=== PATIENT | female | born 1935 | race Caucasian/White ===

== ENCOUNTER 2023-11-20 15:12 | Emergency (ER) | payer MEDICARE, OTHER ==
[~2023-11-20] VITALS: Ht 152.4 cm; Wt 64.9 kg
[2023-11-20] MEDS ORDERED: DIVA250T PO (15:47)
[2023-11-20] MEDS ORDERED: DONE10TA11 PO (15:47)
[2023-11-20] MEDS ORDERED: PIOG15TA8 PO (15:47)
[2023-11-20] MEDS ORDERED: OMEP20CA15 PO (15:47)
[2023-11-20] MEDS ORDERED: CALC-167 PO (15:47)
[2023-11-20] MEDS ORDERED: NA P133E RC (15:47)
[2023-11-20] MEDS ORDERED: AMLO10TA59 PO (15:47)
[2023-11-20] MEDS ORDERED: HYDR12.55 PO (15:47)
[2023-11-20] MEDS ORDERED: MECL-159 PO (15:47)
[2023-11-20] MEDS ORDERED: QUET50TA PO (15:47)
[2023-11-20] MEDS ORDERED: MAGN400O6 PO (15:47)
[2023-11-20] MEDS ORDERED: POTA-88 PO (15:47)
[2023-11-20] MEDS ORDERED: ONDA4TAB11 PO (15:47)
[2023-11-20] MEDS ORDERED: MEMA10TA PO (15:47)
[2023-11-20] MEDS ORDERED: ATOR10TA PO (15:47)
[2023-11-20] MEDS ORDERED: TRAM50TA2 PO (15:47)
[2023-11-20] MEDS ORDERED: MELO-105 PO (15:47)
[2023-11-20] MEDS ORDERED: BISA10SU61 RC (15:47)
[2023-11-20] MEDS ORDERED: MIRT7.5T10 PO (15:47)
[2023-11-20] MEDS ORDERED: ACET-73 PO (15:47)
[2023-11-20] MEDS ORDERED: LORA-259 PO (15:47)
[2023-11-20] MEDS ORDERED: CYCLOSPORINE 0.05% EACHEYE (15:47)
[2023-11-20] MEDS ORDERED: MULT-594 PO (15:47)
[2023-11-20] MEDS ORDERED: TRAZ-182 PO (15:47)
[2023-11-20] MEDS ORDERED: ASCO500C18 PO (15:47)
[2023-11-20] MEDS ORDERED: LEVO25TA2 PO (15:47)
[2023-11-20] MEDS ORDERED: ACET325T53 PO (15:47)
[2023-11-20 15:49] LABS: BASOPHILS % (AUTO) 0.4 % (0.0-2.0); EOSINOPHILS # (AUTO) 0.2 K/uL (0.0-0.7); EOSINOPHILS % (AUTO) 2.9 % (0.0-7.0); HEMATOCRIT 36.3 % (31.2-41.9); HEMOGLOBIN 11.7 g/dL (10.9-14.3); LYMPHOCYTES % (AUTO) 31.5 % (20.5-51.5); MEAN CORPUSCULAR HEMOGLOBIN 26.6 uug (24.7-32.8); MEAN CORPUSCULAR HGB CONC 32 g/dL (32.3-35.6); MEAN CORPUSCULAR VOLUME 82.7 fL (75.5-95.3); MONOCYTES # (AUTO) 0.7 K/uL (0.1-1.30); MONOCYTES % (AUTO) 11.7 % (0.0-11.0); NEUTROPHILS # (AUTO) 3.4 K/uL (1.8-8.9); NEUTROPHILS % (AUTO) 53.5 % (38.5-71.5); PLATELET COUNT (AUTO) 163 K/uL (179-408); RED BLOOD CELL COUNT(AUTO) 4.39 MIL/uL (3.63-4.92); RED CELL DISTRIBUTION WIDTH 15.8 % (12.3-17.7); WHITE BLOOD COUNT (AUTO) 6.4 K/uL (3.8-11.8)
[2023-11-20 15:53] LABS: DIFFERENTIAL COMMENT 1
[2023-11-20 15:56] LABS: CALCIUM 8.8 mg/dL (8.5-10.1); CARBON DIOXIDE 29 mmol/L (21-32); CHLORIDE 100 mmol/L (98-107); CREATININE 0.6 mg/dL (0.6-1.3); GLUCOSE 141 mg/dL (74-106); POTASSIUM 3.7 mmol/L (3.5-5.1); SODIUM SERUM 138 mmol/L (136-145); UREA NITROGEN, BLOOD 19 mg/dL (7-18)
[2023-11-20 15:58] LABS: AMMONIA 25 umol/L (11-32)
[2023-11-20 16:00] LABS: *BILIRUBIN,URIN NEGATIVE (NEGATIVE); *BLOOD, URINE NEGATIVE (NEGATIVE); *CLARITY,URINE CLEAR (CLEAR); *COLOR,URINE YELLOW (YELLOW); *KETONES,URINE NEGATIVE (NEGATIVE); *PROTEIN,URINE NEGATIVE (NEGATIVE); *UROBILINOGEN,URINE 0.2 E.U./dl (NORMAL); LEUKOCYTE ESTERASE ,URINE NEGATIVE (NEGATIVE); NITRITE, URINE NEGATIVE (NEGATIVE); UGLUCOSE NEGATIVE (NEGATIVE)
[2023-11-20 16:02] LABS: ACETAMINOPHEN < 2.0 ug/mL (10-30); ALANINE AMINOTRANSFERASE 18 U/L (14-59); ALBUMIN 3.5 g/dL (3.4-5.0); ALKALINE PHOSPHATASE 50 U/L (50-136); ASPARTATE AMINOTRANSFERASE 14 U/L (15-37); BILIRUBIN,DIRECT 0.1 mg/dL (0.0-0.2); BILIRUBIN,TOTAL 0.2 mg/dL (0.2-1.0); TOTAL PROTEIN, SERUM 7.3 g/dL (6.4-8.2)
[2023-11-20 16:06] LABS: ETHANOL < 3 MG/DL (0-10)
[2023-11-20 16:18] LABS: *AMPHETAMINE, URINE NEGATIVE (NEGATIVE); *BARBITURATE, URINE NEGATIVE (NEGATIVE); *BENZODIAZEPINE, URINE NEGATIVE (NEGATIVE); *CANNABINOID, URINE NEGATIVE (NEGATIVE); *COCCAINE, URINE NEGATIVE (NEGATIVE); *OPIATE, URINE NEGATIVE (NEGATIVE); *PHENCYCLIDINE SCREEN,URINE NEGATIVE (NEGATIVE); FENTANYL, URINE NEGATIVE (NEGATIVE)
[2023-11-20] MEDS ORDERED: LORAZEPAM 0.5 MG TABLET ONE (19:00)
[2023-11-20] MEDS: LORAZEPAM 0.5 MG TABLET PO ONE (19:02)
[2023-11-20 19:23] VITALS: BP 121/55; O2SAT 98
== END 2023-11-20 19:25 | disposition home or self-care (01) ==
LOC: ER 15:15
DX: F03.92 Unspecified dementia, unspecified severity, with psychotic disturbance (principal); M79.605 Pain in left leg; M79.604 Pain in right leg; R51.9 Headache, unspecified; Z79.1 Long term (current) use of non-steroidal anti-inflammatories (NSAID); Z79.899 Other long term (current) drug therapy; Z79.891 Long term (current) use of opiate analgesic; Z20.822 Contact with and (suspected) exposure to COVID-19
CPT/HCPCS: 36415; 70450; 71045; 83605; 85025; 85730; 87040; 93005; A4606; A4663; G0480

== ENCOUNTER 2024-04-26 14:44 | Inpatient (IN) | payer MEDICARE, OTHER ==
[~2024-04-26] VITALS: Ht 182.9 cm; Wt 68.0 kg
[~2024-04-26 14:44] MED LIST: ACET-73 PO; ACET325T53 PO; AMLO10TA59 PO; ASCO500C18 PO; ATOR10TA PO; BISA10SU61 RC; CALC-167 PO; CYCLOSPORINE 0.05% EACHEYE; DIVA250T PO; DONE10TA11 PO; HYDR12.55 PO; LEVO25TA2 PO; LORA-259 PO; MAGN400O6 PO; MECL-159 PO; MELO-105 PO; MEMA10TA PO; MIRT7.5T10 PO; MULT-594 PO; NA P133E RC; OMEP20CA15 PO; ONDA4TAB11 PO; PIOG15TA8 PO; POTA-88 PO; QUET50TA PO; TRAM50TA2 PO; TRAZ-182 PO
[2024-04-26 15:25] LABS: BASOPHILS % (AUTO) 0.3 % (0.0-2.0); EOSINOPHILS % (AUTO) 0.3 % (0.0-7.0); HEMATOCRIT 34.9 % (31.2-41.9); HEMOGLOBIN 11.7 g/dL (10.9-14.3); LYMPHOCYTES # (AUTO) 1.8 K/uL (0.8-4.8); LYMPHOCYTES % (AUTO) 14.1 % (20.5-51.5); MEAN CORPUSCULAR HEMOGLOBIN 28.2 uug (24.7-32.8); MEAN CORPUSCULAR HGB CONC 34 g/dL (32.3-35.6); MEAN CORPUSCULAR VOLUME 84.2 fL (75.5-95.3); MONOCYTES # (AUTO) 1.1 K/uL (0.1-1.30); MONOCYTES % (AUTO) 8.6 % (0.0-11.0); NEUTROPHILS # (AUTO) 9.8 K/uL (1.8-8.9); NEUTROPHILS % (AUTO) 76.7 % (38.5-71.5); PLATELET COUNT (AUTO) 192 K/uL (179-408); RED BLOOD CELL COUNT(AUTO) 4.15 MIL/uL (3.63-4.92); RED CELL DISTRIBUTION WIDTH 14.7 % (12.3-17.7); WHITE BLOOD COUNT (AUTO) 12.8 K/uL (3.8-11.8)
[2024-04-26 15:32] LABS: DIFFERENTIAL COMMENT 1
[2024-04-26 15:36] LABS: CALCIUM 8.4 mg/dL (8.5-10.1); CARBON DIOXIDE 28 mmol/L (21-32); CHLORIDE 104 mmol/L (98-107); CREATININE 0.8 mg/dL (0.6-1.3); GLUCOSE 145 mg/dL (74-106); POTASSIUM 4.3 mmol/L (3.5-5.1); SODIUM SERUM 140 mmol/L (136-145); UREA NITROGEN, BLOOD 21 mg/dL (7-18)
[2024-04-26 15:50] LABS: ALANINE AMINOTRANSFERASE 20 U/L (14-59); ALBUMIN 3.3 g/dL (3.4-5.0); ALKALINE PHOSPHATASE 48 U/L (50-136); ASPARTATE AMINOTRANSFERASE 16 U/L (15-37); BILIRUBIN,DIRECT 0.1 mg/dL (0.0-0.2); BILIRUBIN,TOTAL 0.3 mg/dL (0.2-1.0); NT-PRO BNP 718 pg/mL (0-125); TOTAL PROTEIN, SERUM 6.9 g/dL (6.4-8.2)
[2024-04-26] MEDS ORDERED: FLEET ENEMA 133 ML BOTTLE RC PRN (18:30)
[2024-04-26] MEDS ORDERED: ACETAMINOPHEN 325 MG TABLET PO PRN (18:30)
[2024-04-26] MEDS ORDERED: BISACODYL 10 MG SUPP.RECT RC PRN (18:30)
[2024-04-26] MEDS: TRAZODONE 50 MG TABLET PO SCH (20:29)
[2024-04-26] MEDS: MIRTAZAPINE 15 MG TABLET PO SCH (20:29)
[2024-04-26] MEDS ORDERED: DIVALPROEX 250 MG TABLET.DR PO ONE (20:29)
[2024-04-26] MEDS: DIVALPROEX ER 250 MG TAB.SR.24H PO SCH (20:30)
[2024-04-26 23:09] VITALS: TEMP 97.7
[2024-04-27] MEDS: TRAMADOL HCL 50 MG TABLET PO PRN (04:32)
[2024-04-27 06:36] LABS: BASOPHILS % (AUTO) 0.5 % (0.0-2.0); EOSINOPHILS # (AUTO) 0.1 K/uL (0.0-0.7); EOSINOPHILS % (AUTO) 1.2 % (0.0-7.0); HEMATOCRIT 32.8 % (31.2-41.9); HEMOGLOBIN 11.4 g/dL (10.9-14.3); LYMPHOCYTES # (AUTO) 1.9 K/uL (0.8-4.8); LYMPHOCYTES % (AUTO) 20.7 % (20.5-51.5); MEAN CORPUSCULAR HGB CONC 35 g/dL (32.3-35.6); MEAN CORPUSCULAR VOLUME 83.7 fL (75.5-95.3); MONOCYTES # (AUTO) 1.3 K/uL (0.1-1.30); MONOCYTES % (AUTO) 13.9 % (0.0-11.0); NEUTROPHILS % (AUTO) 63.7 % (38.5-71.5); PLATELET COUNT (AUTO) 179 K/uL (179-408); RED BLOOD CELL COUNT(AUTO) 3.92 MIL/uL (3.63-4.92); RED CELL DISTRIBUTION WIDTH 14.8 % (12.3-17.7); WHITE BLOOD COUNT (AUTO) 9.4 K/uL (3.8-11.8)
[2024-04-27] MEDS: LEVOTHYROXINE SODIUM 25 MCG TABLET PO SCH (06:36)
[2024-04-27] MEDS: PANTOPRAZOLE SODIUM 40 MG TABLET.DR PO SCH (06:37)
[2024-04-27 07:11] LABS: ALANINE AMINOTRANSFERASE 21 U/L (14-59); ALKALINE PHOSPHATASE 50 U/L (50-136); ASPARTATE AMINOTRANSFERASE 11 U/L (15-37); BILIRUBIN,TOTAL 0.6 mg/dL (0.2-1.0); CALCIUM 8.2 mg/dL (8.5-10.1); CARBON DIOXIDE 29 mmol/L (21-32); CHLORIDE 103 mmol/L (98-107); CHOLESTEROL 117 mg/dL (<200); CREATININE 0.6 mg/dL (0.6-1.3); GLUCOSE 118 mg/dL (74-106); HDL CHOLESTEROL 50 mg/dL (40-60); MAGNESIUM 1.6 mg/dL (1.8-2.4); PHOSPHOROUS 3.2 mg/dL (2.5-4.9); POTASSIUM 3.9 mmol/L (3.5-5.1); SODIUM SERUM 139 mmol/L (136-145); TOTAL PROTEIN, SERUM 7.2 g/dL (6.4-8.2); TRIGLYCERIDES 52 MG/DL (30-150); UREA NITROGEN, BLOOD 17 mg/dL (7-18)
[2024-04-27 07:21] LABS: IRON, SERUM 48 ug/dL (50-175)
[2024-04-27 07:22] LABS: DIFFERENTIAL COMMENT 1
[2024-04-27 07:49] LABS: THYROID STIMULATING HORMONE 2.592 mIU/mL (0.358-3.740)
[2024-04-27] MEDS ORDERED: DIVALPROEX ER 250 MG TAB.SR.24H PO SCH (09:00)
[2024-04-27] MEDS: DONEPEZIL 10 MG TABLET PO SCH (09:17)
[2024-04-27] MEDS: PIOGLITAZONE HCL 15 MG TABLET PO SCH (09:17)
[2024-04-27] MEDS: MEMANTINE HCL 10 MG TABLET PO SCH (09:17)
[2024-04-27] MEDS: AMLODIPINE 10 MG TABLET PO SCH (09:18)
[2024-04-27] MEDS: MAGNESIUM OXIDE 400 MG TABLET PO ONE (12:36)
[2024-04-27 16:05] VITALS: BP 120/63; TEMP 98.1; O2SAT 95
[2024-04-27] MEDS: DIVALPROEX 250 MG TABLET.DR PO SCH (16:49)
[2024-04-27] MEDS ORDERED: CHOL-35 PO (17:30)
[2024-04-27] MEDS ORDERED: DIVA250T4 PO (17:30)
[2024-04-27] MEDS ORDERED: ZINC1CAP3 PO (17:30)
[2024-04-27] MEDS: MAGNESIUM HYDROXIDE 30 ML LIQUID UDC PO PRN (18:25)
[2024-04-27] MEDS ORDERED: MIRTAZAPINE 15 MG TABLET PO SCH (21:00)
[2024-04-27] MEDS: LORAZEPAM 1 MG TABLET PO PRN (21:02)
[2024-04-27 21:42] VITALS: BP 135/71; TEMP 98.6; O2SAT 95
[2024-04-28] MEDS ORDERED: QUETIAPINE FUMARATE 25 MG TABLET PO PRN ×2 (00:15→13:00)
[2024-04-28] MEDS: QUETIAPINE FUMARATE 25 MG TABLET PO PRN (01:18)
[2024-04-28 06:56] VITALS: BP 133/65; TEMP 98.5; O2SAT 95
[2024-04-28 08:00] VITALS: BP 103/47; O2SAT 95
[2024-04-28 08:39] LABS: CALCIUM 8.4 mg/dL (8.5-10.1); CARBON DIOXIDE 27 mmol/L (21-32); CHLORIDE 101 mmol/L (98-107); CREATININE 0.6 mg/dL (0.6-1.3); GLUCOSE 132 mg/dL (74-106); POTASSIUM 3.9 mmol/L (3.5-5.1); SODIUM SERUM 138 mmol/L (136-145); UREA NITROGEN, BLOOD 16 mg/dL (7-18)
[2024-04-28] MEDS: CHOLECALCIFEROL 1,000 UNIT TABLET PO SCH (08:54)
[2024-04-28] MEDS: ZINC SULFATE 220 MG CAPSULE PO SCH (08:54)
[2024-04-28] MEDS: PIOGLITAZONE HCL 15 MG TABLET PO SCH (08:54)
[2024-04-28 16:00] VITALS: BP 146/77; TEMP 99.5; O2SAT 94
[2024-04-28 21:58] VITALS: BP 143/74; TEMP 98.9; O2SAT 96
[2024-04-29 05:43] VITALS: BP 151/79; TEMP 98.1; O2SAT 94
[2024-04-29 08:00] VITALS: BP 143/71; TEMP 98.3; O2SAT 96
[2024-04-29] MEDS ORDERED: ACET325T53 PO (15:45)
[2024-04-29] MEDS ORDERED: HYDR-4209 PO (15:45)
[2024-04-29] MEDS ORDERED: BISA10SU12 RC (15:45)
[2024-04-29] MEDS ORDERED: TRAZ-252 PO (15:45)
[2024-04-29] MEDS ORDERED: DIVA250T4 PO (15:45)
[2024-04-29] MEDS ORDERED: PROT30LI PO (15:45)
[2024-04-29 16:20] VITALS: BP 127/69; TEMP 98.6; O2SAT 94
== END 2024-04-29 19:30 | DRG 535 ==
LOC: ER 14:44 → MEDSURG3 21:37 → MEDSURG1 04-27 09:44
PROVIDERS: ADMIT Internal Medicine; ATTEND Internal Medicine
DX: S32.511A Fracture of superior rim of right pubis, initial encounter for closed fracture (principal); S32.491A Other specified fracture of right acetabulum, initial encounter for closed fracture; E44.1 Mild protein-calorie malnutrition; D68.59 Other primary thrombophilia; F03.92 Unspecified dementia, unspecified severity, with psychotic disturbance; F03.94 Unspecified dementia, unspecified severity, with anxiety; F03.93 Unspecified dementia, unspecified severity, with mood disturbance; G93.40 Encephalopathy, unspecified; S32.591A Other specified fracture of right pubis, initial encounter for closed fracture; W05.0XXA Fall from non-moving wheelchair, initial encounter; Y92.129 Unspecified place in nursing home as the place of occurrence of the external cause; M48.56XD Collapsed vertebra, not elsewhere classified, lumbar region, subsequent encounter for fracture with routine healing; Z53.8 Procedure and treatment not carried out for other reasons; E83.42 Hypomagnesemia; E78.5 Hyperlipidemia, unspecified; E88.09 Other disorders of plasma-protein metabolism, not elsewhere classified; E11.9 Type 2 diabetes mellitus without complications; E03.9 Hypothyroidism, unspecified; Z79.890 Hormone replacement therapy; D72.829 Elevated white blood cell count, unspecified; Z74.09 Other reduced mobility; I10 Essential (primary) hypertension; K21.9 Gastro-esophageal reflux disease without esophagitis; F32.9 Major depressive disorder, single episode, unspecified; R13.10 Dysphagia, unspecified; Z89.512 Acquired absence of left leg below knee; Z79.84 Long term (current) use of oral hypoglycemic drugs; M47.816 Spondylosis without myelopathy or radiculopathy, lumbar region; Z79.899 Other long term (current) drug therapy; Z86.16 Personal history of COVID-19; I44.0 Atrioventricular block, first degree
CPT/HCPCS: 36415; 71045; 72192; 73502; 83550; 83735; 84100; 84443; 84484; 85025; 85730; 86850; 86900; 86901; A4663; G0378; J3490

== ENCOUNTER 2024-06-07 17:54 | Inpatient (IN) | payer MEDICARE, OTHER ==
[~2024-06-07] VITALS: Ht 154.9 cm; Wt 68.0 kg
[~2024-06-07 17:54] MED LIST changes: -ACET-73 PO; -ASCO500C18 PO; -ATOR10TA PO; +BISA10SU12 RC; -BISA10SU61 RC; +CHOL-35 PO; -CYCLOSPORINE 0.05% EACHEYE; -DIVA250T PO; +DIVA250T4 PO; +HYDR-4209 PO; -MECL-159 PO; -MIRT7.5T10 PO; -POTA-88 PO; +PROT30LI PO; -TRAM50TA2 PO; -TRAZ-182 PO; +TRAZ-252 PO
[2024-06-07 18:38] LABS: BASOPHILS # (AUTO) 0.1 K/UL (0.0-0.2); BASOPHILS % (AUTO) 0.5 % (0.0-2.0); EOSINOPHILS # (AUTO) 0.1 K/uL (0.0-0.7); EOSINOPHILS % (AUTO) 0.3 % (0.0-7.0); HEMATOCRIT 33.8 % (31.2-41.9); HEMOGLOBIN 11.1 g/dL (10.9-14.3); LYMPHOCYTES # (AUTO) 1.4 K/uL (0.8-4.8); LYMPHOCYTES % (AUTO) 8.4 % (20.5-51.5); MEAN CORPUSCULAR HEMOGLOBIN 27.9 uug (24.7-32.8); MEAN CORPUSCULAR HGB CONC 33 g/dL (32.3-35.6); MEAN CORPUSCULAR VOLUME 84.8 fL (75.5-95.3); MONOCYTES # (AUTO) 2.3 K/uL (0.1-1.30); MONOCYTES % (AUTO) 13.7 % (0.0-11.0); NEUTROPHILS # (AUTO) 12.8 K/uL (1.8-8.9); NEUTROPHILS % (AUTO) 77.1 % (38.5-71.5); PLATELET COUNT (AUTO) 238 K/uL (179-408); RED BLOOD CELL COUNT(AUTO) 3.98 MIL/uL (3.63-4.92); RED CELL DISTRIBUTION WIDTH 16.1 % (12.3-17.7); WHITE BLOOD COUNT (AUTO) 16.6 K/uL (3.8-11.8)
[2024-06-07] MEDS: IV NORMAL SALINE 1000 ML BAG IV ONE ×2 (18:43→20:00)
[2024-06-07 18:46] LABS: DIFFERENTIAL COMMENT 1
[2024-06-07 18:58] LABS: ALANINE AMINOTRANSFERASE 6 U/L (14-59); ALBUMIN 1.9 g/dL (3.4-5.0); ALKALINE PHOSPHATASE 54 U/L (50-136); ASPARTATE AMINOTRANSFERASE 20 U/L (15-37); BILIRUBIN,DIRECT < 0.1 mg/dL (0.0-0.2); BILIRUBIN,TOTAL 0.4 mg/dL (0.2-1.0); CALCIUM 8.4 mg/dL (8.5-10.1); CARBON DIOXIDE 25 mmol/L (21-32); CHLORIDE 101 mmol/L (98-107); CREATININE 0.5 mg/dL (0.6-1.3); GLUCOSE 182 mg/dL (74-106); SODIUM SERUM 135 mmol/L (136-145); TOTAL PROTEIN, SERUM 7.6 g/dL (6.4-8.2); UREA NITROGEN, BLOOD 22 mg/dL (7-18)
[2024-06-07 19:04] LABS: THYROID STIMULATING HORMONE 4.244 mIU/mL (0.358-3.740)
[2024-06-07 19:36] LABS: MAGNESIUM 1.7 mg/dL (1.8-2.4)
[2024-06-07] MEDS: CEFTRIAXONE 1 G in IV DEXTROSE 5% 50 ML IV ONE (20:00)
[2024-06-07] MEDS: AZITHROMYCIN IV 500 MG in IV DEXTROSE 5% 250 ML IV ONE (20:00)
[2024-06-07] MEDS ORDERED: AZITHROMYCIN 500MG/ D5W 250ML IVPB **ER PYXIS ONLY IV ONE (21:28)
[2024-06-07] MEDS ORDERED: CEFTRIAXONE /D5W 50ML IVPB **ER PYXIS IV ONE (21:28)
[2024-06-07] MEDS ORDERED: CEFEPIME HCL 1 G in IV DEXTROSE 5% 50 ML IV SCH (21:45)
[2024-06-07] MEDS ORDERED: ONDANSETRON 4 MG/2 ML VIAL IV PRN (21:45)
[2024-06-07 22:30] VITALS: BP 150/92; TEMP 98.3; O2SAT 97
[2024-06-07] MEDS: VANCOMYCIN IV 1,250 MG in IV DEXTROSE 5% 250 ML IV ONE (22:30)
[2024-06-07] MEDS: ENOXAPARIN SODIUM 40 MG/0.4 ML DISP.SYRIN SQ SCH (22:45)
[2024-06-07] MEDS ORDERED: VANCOMYCIN HCL 500 MG VIAL ONE (23:06)
[2024-06-07] MEDS ORDERED: VANCOMYCIN 1000 MG VIAL ONE (23:06)
[2024-06-08] VITALS (8 sets, daily range): BP systolic 104–150; BP diastolic 61–90; TEMP 98–98.9; O2SAT 93–98
[2024-06-08] MEDS: DILTIAZEM HCL 25 MG IV IV ONE (04:40)
[2024-06-08] MEDS: PANTOPRAZOLE SODIUM 40 MG TABLET.DR PO SCH (06:31)
[2024-06-08] MEDS: ACETAMINOPHEN 325 MG TABLET PO PRN (06:32)
[2024-06-08 07:06] LABS: BASOPHILS % (AUTO) 0.2 % (0.0-2.0); HEMATOCRIT 32.4 % (31.2-41.9); LYMPHOCYTES # (AUTO) 1.9 K/uL (0.8-4.8); LYMPHOCYTES % (AUTO) 11.9 % (20.5-51.5); MEAN CORPUSCULAR HEMOGLOBIN 28.5 uug (24.7-32.8); MEAN CORPUSCULAR HGB CONC 34 g/dL (32.3-35.6); MEAN CORPUSCULAR VOLUME 83.6 fL (75.5-95.3); MONOCYTES # (AUTO) 2.4 K/uL (0.1-1.30); MONOCYTES % (AUTO) 14.5 % (0.0-11.0); NEUTROPHILS % (AUTO) 73.4 % (38.5-71.5); PLATELET COUNT (AUTO) 277 K/uL (179-408); RED BLOOD CELL COUNT(AUTO) 3.88 MIL/uL (3.63-4.92); RED CELL DISTRIBUTION WIDTH 15.9 % (12.3-17.7); WHITE BLOOD COUNT (AUTO) 16.3 K/uL (3.8-11.8)
[2024-06-08 07:24] LABS: DIFFERENTIAL COMMENT 1
[2024-06-08 07:29] LABS: ALANINE AMINOTRANSFERASE 9 U/L (14-59); ALBUMIN 1.9 g/dL (3.4-5.0); ALKALINE PHOSPHATASE 56 U/L (50-136); ASPARTATE AMINOTRANSFERASE < 5 U/L (15-37); BILIRUBIN,DIRECT 0.1 mg/dL (0.0-0.2); BILIRUBIN,TOTAL 0.4 mg/dL (0.2-1.0); CALCIUM 8.8 mg/dL (8.5-10.1); CARBON DIOXIDE 26 mmol/L (21-32); CHLORIDE 98 mmol/L (98-107); CREATININE 0.4 mg/dL (0.6-1.3); GLUCOSE 149 mg/dL (74-106); MAGNESIUM 1.6 mg/dL (1.8-2.4); PHOSPHOROUS 2.3 mg/dL (2.5-4.9); POTASSIUM 3.3 mmol/L (3.5-5.1); SODIUM SERUM 133 mmol/L (136-145); TOTAL PROTEIN, SERUM 7.7 g/dL (6.4-8.2); UREA NITROGEN, BLOOD 16 mg/dL (7-18)
[2024-06-08] MEDS ORDERED: ACET-2030 PO (07:44)
[2024-06-08] MEDS ORDERED: POLY17PO4 PO (07:49)
[2024-06-08] MEDS ORDERED: ONDA4TAB5 PO (07:51)
[2024-06-08] MEDS: CEFEPIME HCL 2 GM in IV DEXTROSE 5% 100 ML IV SCH (08:30)
[2024-06-08 08:32] LABS: *BILIRUBIN,URIN NEGATIVE (NEGATIVE); *BLOOD, URINE 1+ (NEGATIVE); *CLARITY,URINE CLEAR (CLEAR); *COLOR,URINE YELLOW (YELLOW); *KETONES,URINE 3+ (NEGATIVE); *PROTEIN,URINE 3+ (NEGATIVE); *UROBILINOGEN,URINE 0.2 E.U./dl (NORMAL); LEUKOCYTE ESTERASE ,URINE TRACE (NEGATIVE); NITRITE, URINE POSITIVE (NEGATIVE); UGLUCOSE NEGATIVE (NEGATIVE)
[2024-06-08 08:35] LABS: BACTERIA,URINE MANY /HPF (NONE SEEN); SQUAMOUS EPITHELIAL CELL,UR MODERATE /HPF (NONE SEEN); URINE AMORPHOUS URATE FEW /HPF; WBC,URINE 80-100 /HPF (0-3)
[2024-06-08] MEDS: MAGNESIUM OXIDE 400 MG TABLET PO ONE (11:22)
[2024-06-08] MEDS: POTASSIUM CHLORIDE 20 MEQ TAB.PRT.SR PO ONE (11:22)
[2024-06-08 12:47] LABS: THYROID STIMULATING HORMONE 4.605 mIU/mL (0.358-3.740)
[2024-06-08] MEDS ORDERED: PIPERACILLIN SODIUM/TAZOBACTAM 3.375 G in IV DEXTROSE 5% 50 ML IV SCH (14:00)
[2024-06-08] MEDS: PIPERACILLIN SODIUM/TAZOBACTAM 3.375 G in IV DEXTROSE 5% 100 ML IV SCH (14:50)
[2024-06-08] MEDS: NEUTRA PHOS PACKET PO ONE (15:48)
[2024-06-08] MEDS: ENSURE ENLIVE (VAN) 240 ML LIQUID PO SCH (18:12)
[2024-06-08] MEDS ORDERED: VANCOMYCIN IV 1,000 MG in IV DEXTROSE 5% 250 ML IV SCH (22:00)
[2024-06-09 00:15] VITALS: BP 151/60; TEMP 98; O2SAT 95
[2024-06-09 07:05] LABS: BASOPHILS % (AUTO) 0.3 % (0.0-2.0); EOSINOPHILS % (AUTO) 0.2 % (0.0-7.0); HEMATOCRIT 33.3 % (31.2-41.9); HEMOGLOBIN 11.1 g/dL (10.9-14.3); LYMPHOCYTES # (AUTO) 2.4 K/uL (0.8-4.8); LYMPHOCYTES % (AUTO) 17.8 % (20.5-51.5); MEAN CORPUSCULAR HEMOGLOBIN 27.7 uug (24.7-32.8); MEAN CORPUSCULAR HGB CONC 33 g/dL (32.3-35.6); MONOCYTES # (AUTO) 2.3 K/uL (0.1-1.30); MONOCYTES % (AUTO) 17.6 % (0.0-11.0); NEUTROPHILS # (AUTO) 8.5 K/uL (1.8-8.9); NEUTROPHILS % (AUTO) 64.1 % (38.5-71.5); PLATELET COUNT (AUTO) 305 K/uL (179-408); RED BLOOD CELL COUNT(AUTO) 4.01 MIL/uL (3.63-4.92); RED CELL DISTRIBUTION WIDTH 16.1 % (12.3-17.7); WHITE BLOOD COUNT (AUTO) 13.3 K/uL (3.8-11.8)
[2024-06-09 07:19] LABS: DIFFERENTIAL COMMENT 1
[2024-06-09 07:34] LABS: CALCIUM 8.9 mg/dL (8.5-10.1); CARBON DIOXIDE 25 mmol/L (21-32); CHLORIDE 99 mmol/L (98-107); CREATININE 0.5 mg/dL (0.6-1.3); GLUCOSE 169 mg/dL (74-106); MAGNESIUM 1.7 mg/dL (1.8-2.4); PHOSPHOROUS 2.7 mg/dL (2.5-4.9); POTASSIUM 3.6 mmol/L (3.5-5.1); SODIUM SERUM 133 mmol/L (136-145); UREA NITROGEN, BLOOD 15 mg/dL (7-18)
[2024-06-09 07:35] VITALS: BP 128/64; TEMP 98.3; O2SAT 95
[2024-06-09] MEDS: ARGININE/GLUTAMINE/CALCIUM BMB 1 EACH POWD.PACK PO SCH (08:23)
[2024-06-09 11:25] LABS: LYMPHOCYTES % (MANUAL) 18 % (20-40); MONOCYTES % (MANUAL) 18 % (2-10); NEUTROPHILS % (MANUAL) 64 % (42-75)
[2024-06-09 11:26] LABS: PLATELET ESTIMATE ADEQUATE
[2024-06-09 11:44] VITALS: BP 114/66; TEMP 100.6; O2SAT 96
[2024-06-09] MEDS: MAGNESIUM OXIDE 400 MG TABLET PO ONE (12:37)
[2024-06-09 16:05] VITALS: BP 145/78; TEMP 98.7; O2SAT 97
[2024-06-09] MEDS: OLANZAPINE 2.5 MG TABLET PO PRN (16:18)
[2024-06-09] MEDS: OLANZAPINE 10 MG VIAL IM PRN (17:39)
[2024-06-09 20:00] VITALS: BP 128/64; TEMP 98.3; O2SAT 95
[2024-06-10 05:07] VITALS: BP 122/104; TEMP 100.3; O2SAT 95
[2024-06-10 07:42] VITALS: BP 99/55; TEMP 98; O2SAT 96
[2024-06-10 07:58] LABS: CALCIUM 8.6 mg/dL (8.5-10.1); CARBON DIOXIDE 28 mmol/L (21-32); CHLORIDE 102 mmol/L (98-107); CREATININE 0.5 mg/dL (0.6-1.3); GLUCOSE 160 mg/dL (74-106); MAGNESIUM 1.7 mg/dL (1.8-2.4); POTASSIUM 3.4 mmol/L (3.5-5.1); SODIUM SERUM 139 mmol/L (136-145); UREA NITROGEN, BLOOD 16 mg/dL (7-18)
[2024-06-10] MEDS ORDERED: FLEET ENEMA 133 ML BOTTLE RC PRN (10:30)
[2024-06-10] MEDS ORDERED: MIRALAX 17 GM POWD.PACK PO PRN (10:30)
[2024-06-10] MEDS ORDERED: ACETAMINOPHEN 325 MG TABLET-SA PATIENTS-PAIN ONLY PO PRN (10:30)
[2024-06-10] MEDS ORDERED: BISACODYL 10 MG SUPP.RECT RC PRN (10:30)
[2024-06-10] MEDS ORDERED: MAGNESIUM HYDROXIDE 30 ML LIQUID UDC PO PRN (10:30)
[2024-06-10] MEDS ORDERED: ACETAMINOPHEN 325 MG TABLET PO PRN (11:00)
[2024-06-10] MEDS: POTASSIUM CHLORIDE 20 MEQ TAB.PRT.SR PO ONE (11:00)
[2024-06-10] MEDS: MAGNESIUM OXIDE 400 MG TABLET PO ONE (11:07)
[2024-06-10 11:11] VITALS: BP 115/57; TEMP 98.5; O2SAT 97
[2024-06-10] MEDS: DIVALPROEX 250 MG TABLET.DR PO SCH (13:59)
[2024-06-10 16:20] VITALS: BP 95/47; TEMP 99.5; O2SAT 97
[2024-06-10] MEDS: QUETIAPINE FUMARATE 25 MG TABLET PO SCH (17:41)
[2024-06-10 18:00] VITALS: BP 121/56; TEMP 99; O2SAT 97
[2024-06-10] MEDS ORDERED: Medication Not On Formulary EA (Quetiapine Fumarate (Seroquel) 50 MG) PO SCH (18:00)
[2024-06-10 19:15] VITALS: BP 122/60; TEMP 98.7; O2SAT 95
[2024-06-10] MEDS: TRAZODONE 50 MG TABLET PO SCH (20:28)
[2024-06-10] MEDS: DONEPEZIL 10 MG TABLET PO SCH (20:28)
[2024-06-10] MEDS: METOPROLOL TARTRATE 25 MG TABLET PO SCH (20:28)
[2024-06-10] MEDS ORDERED: IV 0.9% SODIUM CHLORID+ 20 KCL 1,000 ML ONE (21:05)
[2024-06-10] MEDS: POTASSIUM CHLORIDE 20 MEQ in IV NS 1000 ML 1,000 ML IV PRN (21:11)
[2024-06-11 00:26] VITALS: BP 110/49; TEMP 99.6; O2SAT 98
[2024-06-11 05:52] VITALS: BP 118/59; TEMP 99.2; O2SAT 97
[2024-06-11 06:08] LABS: BASOPHILS # (AUTO) 0.1 K/UL (0.0-0.2); BASOPHILS % (AUTO) 0.6 % (0.0-2.0); EOSINOPHILS # (AUTO) 0.1 K/uL (0.0-0.7); EOSINOPHILS % (AUTO) 1.2 % (0.0-7.0); HEMATOCRIT 26.7 % (31.2-41.9); HEMOGLOBIN 9.3 g/dL (10.9-14.3); LYMPHOCYTES # (AUTO) 2.2 K/uL (0.8-4.8); LYMPHOCYTES % (AUTO) 20.3 % (20.5-51.5); MEAN CORPUSCULAR HEMOGLOBIN 28.7 uug (24.7-32.8); MEAN CORPUSCULAR HGB CONC 35 g/dL (32.3-35.6); MEAN CORPUSCULAR VOLUME 82.8 fL (75.5-95.3); MONOCYTES # (AUTO) 1.6 K/uL (0.1-1.30); MONOCYTES % (AUTO) 14.6 % (0.0-11.0); NEUTROPHILS # (AUTO) 6.8 K/uL (1.8-8.9); NEUTROPHILS % (AUTO) 63.3 % (38.5-71.5); PLATELET COUNT (AUTO) 289 K/uL (179-408); RED BLOOD CELL COUNT(AUTO) 3.22 MIL/uL (3.63-4.92); WHITE BLOOD COUNT (AUTO) 10.7 K/uL (3.8-11.8)
[2024-06-11] MEDS: LEVOTHYROXINE SODIUM 25 MCG TABLET PO SCH (06:12)
[2024-06-11 06:20] LABS: DIFFERENTIAL COMMENT 1
[2024-06-11 06:28] LABS: ALANINE AMINOTRANSFERASE 32 U/L (14-59); ALBUMIN 1.6 g/dL (3.4-5.0); ALKALINE PHOSPHATASE 58 U/L (50-136); ASPARTATE AMINOTRANSFERASE 27 U/L (15-37); BILIRUBIN,TOTAL 0.4 mg/dL (0.2-1.0); CARBON DIOXIDE 28 mmol/L (21-32); CHLORIDE 104 mmol/L (98-107); CREATININE 0.5 mg/dL (0.6-1.3); GLUCOSE 146 mg/dL (74-106); MAGNESIUM 1.8 mg/dL (1.8-2.4); PHOSPHOROUS 2.9 mg/dL (2.5-4.9); POTASSIUM 3.8 mmol/L (3.5-5.1); SODIUM SERUM 139 mmol/L (136-145); TOTAL PROTEIN, SERUM 6.6 g/dL (6.4-8.2); UREA NITROGEN, BLOOD 16 mg/dL (7-18)
[2024-06-11 07:31] VITALS: BP 106/51; TEMP 98.8; O2SAT 97
[2024-06-11] MEDS: MEMANTINE HCL 10 MG TABLET PO SCH (08:36)
[2024-06-11] MEDS: MULTIVITAMINS,THERAPEUTIC TABLET PO SCH (08:36)
[2024-06-11] MEDS: REMEDY ESSENTIAL ZINC PASTE 113 GM TP PRN (08:38)
[2024-06-11] MEDS ORDERED: Medication Not On Formulary EA (Multivitamins (Multivitamin) 1 TAB) PO SCH (09:00)
[2024-06-11 11:33] VITALS: BP 109/45; TEMP 98.5; O2SAT 98
[2024-06-11] MEDS: PROTEIN SUPPLEMENT (PROSTAT) 30 ML LIQUID PO SCH (12:15)
[2024-06-11 15:59] VITALS: BP 101/41; TEMP 99.9; O2SAT 97
[2024-06-11 19:51] VITALS: BP 120/73; TEMP 97.2; O2SAT 97
[2024-06-12 04:22] VITALS: BP 112/63; TEMP 98.6; O2SAT 94
[2024-06-12] MEDS: PIOGLITAZONE HCL 15 MG TABLET PO SCH (09:37)
[2024-06-12 11:06] VITALS: BP 115/74; TEMP 98.5; O2SAT 94
[2024-06-12 15:18] VITALS: BP 110/70; TEMP 97.6; O2SAT 96
[2024-06-12 15:42] LABS: BASOPHILS # (AUTO) 0.1 K/UL (0.0-0.2); BASOPHILS % (AUTO) 0.7 % (0.0-2.0); EOSINOPHILS # (AUTO) 0.1 K/uL (0.0-0.7); EOSINOPHILS % (AUTO) 0.9 % (0.0-7.0); HEMOGLOBIN 8.3 g/dL (10.9-14.3); LYMPHOCYTES # (AUTO) 1.8 K/uL (0.8-4.8); LYMPHOCYTES % (AUTO) 16.5 % (20.5-51.5); MEAN CORPUSCULAR HEMOGLOBIN 27.7 uug (24.7-32.8); MEAN CORPUSCULAR HGB CONC 33 g/dL (32.3-35.6); MEAN CORPUSCULAR VOLUME 83.5 fL (75.5-95.3); MONOCYTES # (AUTO) 1.7 K/uL (0.1-1.30); NEUTROPHILS # (AUTO) 7.4 K/uL (1.8-8.9); NEUTROPHILS % (AUTO) 66.9 % (38.5-71.5); PLATELET COUNT (AUTO) 321 K/uL (179-408); RED CELL DISTRIBUTION WIDTH 16.4 % (12.3-17.7); WHITE BLOOD COUNT (AUTO) 11.1 K/uL (3.8-11.8)
[2024-06-12 15:49] LABS: DIFFERENTIAL COMMENT 1
[2024-06-12 15:50] LABS: EOSINOPHILS % (MANUAL) 1 % (0-8); LYMPHOCYTES % (MANUAL) 17 % (20-40); MONOCYTES % (MANUAL) 15 % (2-10); NEUTROPHILS % (MANUAL) 67 % (42-75); PLATELET ESTIMATE ADEQUATE
[2024-06-12 19:30] VITALS: BP 117/79; O2SAT 95
[2024-06-13] MEDS: LORAZEPAM 1 MG TABLET PO PRN (05:38)
[2024-06-13 06:30] VITALS: BP 124/65; TEMP 98.6; O2SAT 97
[2024-06-13 07:03] LABS: BASOPHILS % (AUTO) 0.4 % (0.0-2.0); EOSINOPHILS # (AUTO) 0.2 K/uL (0.0-0.7); EOSINOPHILS % (AUTO) 1.7 % (0.0-7.0); HEMATOCRIT 25.8 % (31.2-41.9); HEMOGLOBIN 8.7 g/dL (10.9-14.3); LYMPHOCYTES # (AUTO) 1.7 K/uL (0.8-4.8); MEAN CORPUSCULAR HEMOGLOBIN 28.3 uug (24.7-32.8); MEAN CORPUSCULAR HGB CONC 34 g/dL (32.3-35.6); MEAN CORPUSCULAR VOLUME 83.3 fL (75.5-95.3); MONOCYTES # (AUTO) 1.5 K/uL (0.1-1.30); MONOCYTES % (AUTO) 16.4 % (0.0-11.0); NEUTROPHILS # (AUTO) 5.9 K/uL (1.8-8.9); NEUTROPHILS % (AUTO) 63.5 % (38.5-71.5); PLATELET COUNT (AUTO) 327 K/uL (179-408); RED BLOOD CELL COUNT(AUTO) 3.09 MIL/uL (3.63-4.92); RED CELL DISTRIBUTION WIDTH 16.1 % (12.3-17.7); WHITE BLOOD COUNT (AUTO) 9.3 K/uL (3.8-11.8)
[2024-06-13 07:16] LABS: ALANINE AMINOTRANSFERASE 23 U/L (14-59); ALBUMIN 1.6 g/dL (3.4-5.0); ALKALINE PHOSPHATASE 53 U/L (50-136); ASPARTATE AMINOTRANSFERASE 17 U/L (15-37); BILIRUBIN,TOTAL 0.3 mg/dL (0.2-1.0); CALCIUM 8.5 mg/dL (8.5-10.1); CARBON DIOXIDE 28 mmol/L (21-32); CHLORIDE 103 mmol/L (98-107); CREATININE 0.5 mg/dL (0.6-1.3); GLUCOSE 139 mg/dL (74-106); IRON, SERUM 15 ug/dL (50-175); MAGNESIUM 1.8 mg/dL (1.8-2.4); PHOSPHOROUS 3.5 mg/dL (2.5-4.9); POTASSIUM 3.4 mmol/L (3.5-5.1); SODIUM SERUM 133 mmol/L (136-145); TOTAL PROTEIN, SERUM 6.5 g/dL (6.4-8.2); UREA NITROGEN, BLOOD 12 mg/dL (7-18)
[2024-06-13 07:45] LABS: DIFFERENTIAL COMMENT 1
[2024-06-13 11:19] LABS: EOSINOPHILS % (MANUAL) 2 % (0-8); LYMPHOCYTES % (MANUAL) 18 % (20-40); MONOCYTES % (MANUAL) 16 % (2-10); NEUTROPHILS % (MANUAL) 64 % (42-75); PLATELET ESTIMATE ADEQUATE
[2024-06-13 11:33] VITALS: BP 112/60; TEMP 97.8; O2SAT 96
[2024-06-13] MEDS ORDERED: POTASSIUM CHLORIDE 20 MEQ TAB.PRT.SR PO ONE (14:00)
== END 2024-06-13 13:05 | DRG 871 ==
LOC: ER 18:09 → TELE3 21:10 → MEDSURG3 06-11 21:47
PROVIDERS: ADMIT Nurse Practitioner Family; ATTEND Internal Medicine
PROC: 05HA33Z Insertion of Infusion Device into Left Brachial Vein, Percutaneous Approach (ICD-10-PCS; principal; 2024-06-12)
DX: A41.9 Sepsis, unspecified organism (principal); G92.8 Other toxic encephalopathy; N39.0 Urinary tract infection, site not specified; F03.92 Unspecified dementia, unspecified severity, with psychotic disturbance; E44.0 Moderate protein-calorie malnutrition; D68.59 Other primary thrombophilia; F03.94 Unspecified dementia, unspecified severity, with anxiety; F03.93 Unspecified dementia, unspecified severity, with mood disturbance; R62.7 Adult failure to thrive; Z68.28 Body mass index [BMI] 28.0-28.9, adult; E66.9 Obesity, unspecified; Z71.3 Dietary counseling and surveillance; Z74.09 Other reduced mobility; E78.5 Hyperlipidemia, unspecified; I10 Essential (primary) hypertension; I48.0 Paroxysmal atrial fibrillation; E87.6 Hypokalemia; E83.42 Hypomagnesemia; E11.65 Type 2 diabetes mellitus with hyperglycemia; M48.56XD Collapsed vertebra, not elsewhere classified, lumbar region, subsequent encounter for fracture with routine healing; Z79.890 Hormone replacement therapy; E03.9 Hypothyroidism, unspecified; F32.A Depression, unspecified; Z79.84 Long term (current) use of oral hypoglycemic drugs; Z89.512 Acquired absence of left leg below knee; R13.10 Dysphagia, unspecified; K21.9 Gastro-esophageal reflux disease without esophagitis; R26.2 Difficulty in walking, not elsewhere classified; S32.511D Fracture of superior rim of right pubis, subsequent encounter for fracture with routine healing; W19.XXXD Unspecified fall, subsequent encounter
CPT/HCPCS: 36415; 71045; 83550; 83605; 83735; 84100; 84443; 84484; 85025; 85730; 87040; 87086; 93307; A4606; A4663; A6213; G0378; J0456; J0692; J0696; J1650; J2358; J2543; J3370; J3480; J3490; J7040; J7050

== ENCOUNTER 2024-11-15 12:56 | Inpatient (IN) | payer MEDICARE, OTHER ==
[~2024-11-15] VITALS: Ht 157.5 cm; Wt 63.5 kg
[~2024-11-15 12:56] MED LIST changes: +ACET-2030 PO; -ONDA4TAB11 PO; +ONDA4TAB5 PO; +POLY17PO4 PO; -PROT30LI PO
[2024-11-15] MEDS ORDERED: MIRT-121 PO (13:16)
[2024-11-15] MEDS ORDERED: PANT40TA49 PO (13:16)
[2024-11-15] MEDS ORDERED: METO25TA6 PO (13:16)
[2024-11-15] MEDS ORDERED: CEFTRIAXONE /D5W 50ML IVPB **ER PYXIS IV ONE (13:33)
[2024-11-15] MEDS ORDERED: diphenhydrAMINE 50 MG/1 ML VIAL ONE (13:33)
[2024-11-15] MEDS: diphenhydrAMINE 50 MG/1 ML VIAL IV ONE (13:41)
[2024-11-15] MEDS: IV NORMAL SALINE 1000 ML BAG IV ONE (13:41)
[2024-11-15] MEDS: CEFTRIAXONE 1 G in IV DEXTROSE 5% 50 ML IV ONE (13:41)
[2024-11-15 13:42] LABS: PLATELET COUNT (AUTO) 195 K/uL (179-408); RED BLOOD CELL COUNT(AUTO) 3.61 MIL/uL (3.63-4.92); RED CELL DISTRIBUTION WIDTH 19.7 % (12.3-17.7); WHITE BLOOD COUNT (AUTO) 5.3 K/uL (3.8-11.8)
[2024-11-15 13:49] LABS: CREATININE 0.3 mg/dL (0.6-1.3); SODIUM SERUM 142 mmol/L (136-145); UREA NITROGEN, BLOOD 12 mg/dL (7-18)
[2024-11-15 14:01] LABS: ASPARTATE AMINOTRANSFERASE 11 U/L (15-37); TOTAL PROTEIN, SERUM 6.5 g/dL (6.4-8.2)
[2024-11-15 14:45] LABS: *BILIRUBIN,URIN NEGATIVE (NEGATIVE); *BLOOD, URINE 2+ (NEGATIVE); *CLARITY,URINE CLOUDY (CLEAR); *COLOR,URINE YELLOW (YELLOW); *KETONES,URINE NEGATIVE (NEGATIVE); *PROTEIN,URINE 1+ (NEGATIVE); *UROBILINOGEN,URINE 1.0 E.U./dl (NORMAL); LEUKOCYTE ESTERASE ,URINE 3+ (NEGATIVE); NITRITE, URINE POSITIVE (NEGATIVE); UGLUCOSE NEGATIVE (NEGATIVE)
[2024-11-15 14:53] LABS: SQUAMOUS EPITHELIAL CELL,UR MODERATE /HPF (NONE SEEN)
[2024-11-15 15:15] VITALS: BP 137/66
[2024-11-15 16:41] VITALS: BP 121/63; TEMP 98
[2024-11-15] MEDS ORDERED: BISACODYL 10 MG SUPP.RECT RC PRN (17:30)
[2024-11-15] MEDS ORDERED: MIRALAX 17 GM POWD.PACK PO PRN (17:30)
[2024-11-15] MEDS ORDERED: ACETAMINOPHEN 325 MG TABLET-SA PATIENTS-PAIN ONLY PO PRN (17:30)
[2024-11-15] MEDS ORDERED: FLEET ENEMA 133 ML BOTTLE RC PRN (17:30)
[2024-11-15] MEDS ORDERED: MORPHINE SULFATE 2 MG/1 ML DISP.SYRIN IV PRN (17:45)
[2024-11-15] MEDS ORDERED: Medication Not On Formulary EA (Quetiapine Fumarate (Seroquel) 50 MG) PO SCH (18:00)
[2024-11-15 19:20] VITALS: BP 133/61; TEMP 99.1; O2SAT 99
[2024-11-15] MEDS ORDERED: ACETAMINOPHEN 325 MG TABLET PO PRN (19:30)
[2024-11-15] MEDS: DOCUSATE SODIUM 100 MG CAPSULE PO SCH (20:20)
[2024-11-15] MEDS: ENOXAPARIN SODIUM 40 MG/0.4 ML DISP.SYRIN SQ SCH (20:20)
[2024-11-15] MEDS: TRAZODONE 50 MG TABLET PO SCH (20:21)
[2024-11-15] MEDS: MIRTAZAPINE 15 MG TABLET PO SCH (20:21)
[2024-11-15] MEDS: LORAZEPAM 1 MG TABLET PO PRN (20:41)
[2024-11-15] MEDS ORDERED: DOCUSATE SODIUM 250 MG CAPSULE PO SCH (21:00)
[2024-11-15] MEDS: DIVALPROEX 250 MG TABLET.DR PO SCH (21:42)
[2024-11-16 00:30] VITALS: BP 148/52; TEMP 98.4; O2SAT 96
[2024-11-16 04:33] VITALS: BP 116/44; TEMP 98.2; O2SAT 97
[2024-11-16] MEDS ORDERED: PANTOPRAZOLE SODIUM 40 MG TABLET.DR PO SCH ×2 (06:00→07:00)
[2024-11-16] MEDS: PANTOPRAZOLE SODIUM 40 MG TABLET.DR PO SCH (06:07)
[2024-11-16] MEDS: LEVOTHYROXINE SODIUM 25 MCG TABLET PO SCH (06:07)
[2024-11-16 06:50] LABS: PLATELET COUNT (AUTO) 160 K/uL (179-408); RED BLOOD CELL COUNT(AUTO) 3.35 MIL/uL (3.63-4.92); RED CELL DISTRIBUTION WIDTH 18.9 % (12.3-17.7); WHITE BLOOD COUNT (AUTO) 4.8 K/uL (3.8-11.8)
[2024-11-16 07:11] LABS: ASPARTATE AMINOTRANSFERASE 6 U/L (15-37); CREATININE 0.3 mg/dL (0.6-1.3); SODIUM SERUM 143 mmol/L (136-145); TOTAL PROTEIN, SERUM 6.1 g/dL (6.4-8.2); UREA NITROGEN, BLOOD 7 mg/dL (7-18)
[2024-11-16 07:12] LABS: IRON, SERUM 39 ug/dL (50-175)
[2024-11-16 07:13] VITALS: BP 107/46; TEMP 98.5; O2SAT 97
[2024-11-16] MEDS ORDERED: Medication Not On Formulary EA (Multivitamins (Multivitamin) 1 TAB) PO SCH (09:00)
[2024-11-16] MEDS ORDERED: CEFTRIAXONE 1 G in IV DEXTROSE 5% 50 ML IV SCH (09:00)
[2024-11-16] MEDS: MEMANTINE HCL 10 MG TABLET PO SCH (09:01)
[2024-11-16] MEDS: MULTIVITAMINS,THERAPEUTIC TABLET PO SCH (09:02)
[2024-11-16] MEDS: MAGNESIUM OXIDE 400 MG TABLET PO ONE (10:12)
[2024-11-16] MEDS: POTASSIUM CHLORIDE 20 MEQ TAB.PRT.SR PO ONE (10:12)
[2024-11-16 10:48] VITALS: BP 105/49; TEMP 98; O2SAT 98
[2024-11-16] MEDS: CEFTRIAXONE 1 G in IV DEXTROSE 5% 50 ML IV SCH (13:18)
[2024-11-16 15:55] VITALS: BP 110/50; TEMP 98; O2SAT 95
[2024-11-16] MEDS: GLUCERNA SHAKE 237 ML CAN PO SCH (17:00)
[2024-11-16 19:00] VITALS: BP 109/44; TEMP 98.5; O2SAT 100
[2024-11-16] MEDS: QUETIAPINE FUMARATE 25 MG TABLET PO SCH (20:03)
[2024-11-17 06:00] VITALS: BP 119/52; TEMP 97.7; O2SAT 97
[2024-11-17 06:36] LABS: PLATELET COUNT (AUTO) 162 K/uL (179-408); RED BLOOD CELL COUNT(AUTO) 3.40 MIL/uL (3.63-4.92); RED CELL DISTRIBUTION WIDTH 19.4 % (12.3-17.7); WHITE BLOOD COUNT (AUTO) 4.4 K/uL (3.8-11.8)
[2024-11-17 07:00] LABS: ASPARTATE AMINOTRANSFERASE < 5 U/L (15-37); CREATININE 0.3 mg/dL (0.6-1.3); SODIUM SERUM 141 mmol/L (136-145); TOTAL PROTEIN, SERUM 6.3 g/dL (6.4-8.2); UREA NITROGEN, BLOOD 9 mg/dL (7-18)
[2024-11-17] MEDS: MAGNESIUM OXIDE 400 MG TABLET PO ONE (10:22)
[2024-11-17 11:46] VITALS: BP 96/48; TEMP 98.3; O2SAT 99
[2024-11-17 16:33] VITALS: BP 159/75; TEMP 97.6; O2SAT 96
[2024-11-17 20:24] VITALS: BP 149/59; TEMP 97.8; O2SAT 96
[2024-11-18 04:30] VITALS: BP 121/53; TEMP 98; O2SAT 94
[2024-11-18] MEDS: PIOGLITAZONE HCL 15 MG TABLET PO SCH (08:16)
[2024-11-18] MEDS: OLANZAPINE 10 MG VIAL IM PRN (10:17)
[2024-11-18 11:13] VITALS: BP 119/62; TEMP 98.6; O2SAT 96
[2024-11-18] MEDS: NITROFURANTOIN/NITROFURAN MAC 100 MG CAPSULE PO SCH (15:05)
[2024-11-18] MEDS ORDERED: NITR100C11 PO (15:31)
[2024-11-18 15:44] VITALS: BP 133/66; TEMP 98.2; O2SAT 94
== END 2024-11-18 19:36 | DRG 871 ==
LOC: ER 12:56 → TELE3 15:24 → MEDSURG3 11-16 21:00
PROVIDERS: ADMIT Internal Medicine; ATTEND Internal Medicine
PROC: 05HC33Z Insertion of Infusion Device into Left Basilic Vein, Percutaneous Approach (ICD-10-PCS; principal; 2024-11-15)
PROC: 05HC33Z Insertion of Infusion Device into Left Basilic Vein, Percutaneous Approach (ICD-10-PCS; 2024-11-16)
DX: A41.9 Sepsis, unspecified organism (principal); E43 Unspecified severe protein-calorie malnutrition; G92.8 Other toxic encephalopathy; L89.153 Pressure ulcer of sacral region, stage 3; N39.0 Urinary tract infection, site not specified; Z16.12 Extended spectrum beta lactamase (ESBL) resistance; M48.56XA Collapsed vertebra, not elsewhere classified, lumbar region, initial encounter for fracture; F03.92 Unspecified dementia, unspecified severity, with psychotic disturbance; F03.94 Unspecified dementia, unspecified severity, with anxiety; F03.93 Unspecified dementia, unspecified severity, with mood disturbance; D68.59 Other primary thrombophilia; I48.0 Paroxysmal atrial fibrillation; E86.0 Dehydration; R62.7 Adult failure to thrive; B96.89 Other specified bacterial agents as the cause of diseases classified elsewhere; D50.8 Other iron deficiency anemias; K21.9 Gastro-esophageal reflux disease without esophagitis; E03.9 Hypothyroidism, unspecified; Z79.890 Hormone replacement therapy; Z87.440 Personal history of urinary (tract) infections; Z89.512 Acquired absence of left leg below knee; F32.9 Major depressive disorder, single episode, unspecified; Z74.09 Other reduced mobility; E78.5 Hyperlipidemia, unspecified; Z79.899 Other long term (current) drug therapy; Z86.16 Personal history of COVID-19; R73.03 Prediabetes; N76.0 Acute vaginitis; Z79.84 Long term (current) use of oral hypoglycemic drugs; I10 Essential (primary) hypertension; Z91.81 History of falling; R21 Rash and other nonspecific skin eruption; R65.20 Severe sepsis without septic shock; Z68.25 Body mass index [BMI] 25.0-25.9, adult
CPT/HCPCS: 36415; 71045; 82378; 83550; 83605; 83735; 84100; 84443; 84484; 85025; 85730; 87040; 87077; 87086; A4606; A4663; A6213; C1758; G0378; J0696; J1200; J1650; J2358; J3490; J7040

== ENCOUNTER 2025-02-01 10:39 | Emergency (ER) | payer MEDICARE, OTHER ==
[~2025-02-01] VITALS: Ht 160 cm; Wt 72.6 kg
[~2025-02-01 10:39] MED LIST changes: -ACET-2030 PO; -AMLO10TA59 PO; -CALC-167 PO; -CHOL-35 PO; -DONE10TA11 PO; -HYDR-4209 PO; -HYDR12.55 PO; -LORA-259 PO; -MELO-105 PO; +METO25TA6 PO; +MIRT-121 PO; +NITR100C11 PO; -OMEP20CA15 PO; -ONDA4TAB5 PO; +PANT40TA49 PO
[2025-02-01] MEDS ORDERED: NEOM1OIN19 TP (10:57)
[2025-02-01] MEDS ORDERED: HYDR170P TP (10:57)
[2025-02-01] MEDS ORDERED: LORA-259 PO (10:57)
[2025-02-01 11:00] VITALS: BP 112/71
[2025-02-01] MEDS ORDERED: OLANZAPINE 10 MG VIAL IM ONE (12:45)
[2025-02-01] MEDS ORDERED: diphenhydrAMINE 50 MG/1 ML VIAL IM ONE (12:45)
[2025-02-01 13:01] VITALS: BP 140/69; O2SAT 98
== END 2025-02-01 13:05 | disposition home or self-care (01) ==
LOC: ER 10:39
DX: S00.03XA Contusion of scalp, initial encounter (principal); I11.9 Hypertensive heart disease without heart failure; E11.9 Type 2 diabetes mellitus without complications; E78.5 Hyperlipidemia, unspecified; F03.93 Unspecified dementia, unspecified severity, with mood disturbance; F03.94 Unspecified dementia, unspecified severity, with anxiety; F32.A Depression, unspecified; Z79.890 Hormone replacement therapy; Z79.899 Other long term (current) drug therapy; Z86.16 Personal history of COVID-19; Z87.440 Personal history of urinary (tract) infections; Z89.512 Acquired absence of left leg below knee; Z91.81 History of falling; W19.XXXA Unspecified fall, initial encounter; Y93.89 Activity, other specified; Y92.89 Other specified places as the place of occurrence of the external cause; Y99.9 Unspecified external cause status
CPT/HCPCS: 70450; 72125; A4606; A4663